=== PATIENT | female | born 1945 | race Caucasian/White ===

== ENCOUNTER → 2021-06-28 15:25 | Outpatient (CLI) | payer MEDICARE, SELFPAY ==
[2021-06-28 16:29] LABS: Adenovirus,PCR Not Detected (NotDetected); Bordetella Pertussis Not Detected (NotDetected); Chlamydophila Pneumoniae, PCR Not Detected (NotDetected); Coronavirus 19, PCR Not Detected (NotDetected); Coronavirus 229E Not Detected (NotDetected); Coronavirus NL63 Not Detected (NotDetected); Coronavirus OC43 Not Detected (NotDetected); Coronovirus HKU1,PCR Not Detected (NotDetected); Influenza A, PCR Not Detected (NotDetected); Influenza AH1, 2009 Not Detected (NotDetected); Influenza AH1, PCR Not Detected (NotDetected); Influenza AH3,PCR Not Detected (NotDetected); Influenza B, PCR Not Detected (NotDetected); Mycoplasma Pneumoniae, PCR Not Detected (NotDetected); Parainfluenza 1, PCR Not Detected (NotDetected); Parainfluenza 2, PCR Not Detected (NotDetected); Parainfluenza 3, PCR Not Detected (NotDetected); Parainfluenza 4, PCR Not Detected (NotDetected); Respiratory Syncytial Virus Not Detected (NotDetected); Rhinovirus/Enterovirus Not Detected (NotDetected)
[2021-06-28 16:37] LABS: Basophils # 0.1 K/mm3 (0-0.2); Basophils % 0.9 % (0.1-2.0); Eosinophils # 0.3 K/mm3 (0.0-0.4); Eosinophils % 4.2 % (0.1-12.0); Hematocrit 44.6 % (37.0-47.0); Hemoglobin 14.8 g/dL (12.2-16.2); Lymphocytes # 1.9 K/mm3 (0.7-4.5); Lymphocytes % 28.3 % (10-50); Mean Corpuscular HGB Conc 33.2 g/dL (31.8-35.4); Mean Corpuscular Hemoglobin 34.2 pg (27.0-31.2); Mean Corpuscular Volume 103.1 fl (81-99); Mean Platelet Volume 8.3 fl (7.4-10.4); Monocytes # 0.4 K/mm3 (0.1-1.0); Monocytes % 5.6 % (1.7-9.3); Neutrophils # 4.2 K/mm3 (1.8-7.8); Neutrophils % 61.2 % (37.0-80.0); Platelet Count 200 K/mm3 (142-424); Red Blood Count 4.33 M/mm3 (4.20-5.40); Red Cell Distribution Width 13.1 % (11.5-17.5); White Blood Count 6.8 K/mm3 (4.8-10.8)
[2021-06-28 20:43] LABS: Human Metapneumovirus Detected (NotDetected)
== END ==
PROVIDERS: PCP Family Medicine; Visit Provider Family Medicine
DX: Z20.822 Contact with and (suspected) exposure to COVID-19 (principal); B97.81 Human metapneumovirus as the cause of diseases classified elsewhere
CPT/HCPCS: 36415; 85025; 87581; 87632; 87798; C9803; U0003; U0005

== ENCOUNTER → 2022-03-30 10:10 | Outpatient (CLI) | payer MEDICARE, SELFPAY ==
[2022-03-30 10:51] LABS: Basophils # 0.2 K/mm3 (0-0.2); Basophils % 2.5 % (0.1-2.0); Eosinophils # 0.3 K/mm3 (0.0-0.4); Eosinophils % 4.2 % (0.1-12.0); Hematocrit 45.9 % (37.0-47.0); Hemoglobin 14.6 g/dL (12.2-16.2); Lymphocytes # 1.9 K/mm3 (0.7-4.5); Lymphocytes % 24.8 % (10-50); Mean Corpuscular HGB Conc 31.7 g/dL (31.8-35.4); Mean Corpuscular Hemoglobin 33.6 pg (27.0-31.2); Mean Corpuscular Volume 106.1 fl (81-99); Mean Platelet Volume 8.6 fl (7.4-10.4); Monocytes # 0.5 K/mm3 (0.1-1.0); Neutrophils # 4.7 K/mm3 (1.8-7.8); Neutrophils % 62.5 % (37.0-80.0); Platelet Count 231 K/mm3 (142-424); Red Blood Count 4.33 M/mm3 (4.20-5.40); Red Cell Distribution Width 13.5 % (11.5-17.5); White Blood Count 7.6 K/mm3 (4.8-10.8)
[2022-03-30 10:53] LABS: Hemoglobin A1C 6.1 % (4.0-6.0)
[2022-03-30 11:42] LABS: Chloride 101 mmol/L (98-107); Potassium 4.7 mmoL/L (3.5-5.1); Sodium 140 mmol/L (136-145)
[2022-03-30 11:44] LABS: Blood Urea Nitrogen 13 mg/dl (7-17); Estimated Glomerular Filt Rate 82 ml/min (>60); GFR (African American) 99 ML/MIN (>60)
[2022-03-30 11:45] LABS: Alanine Aminotransferase 20 U/L (12-78); Albumin Level 4.4 g/dl (3.5-5.0); Albumin/Globulin Ratio 1.5 (1.1-1.8); Alkaline Phosphatase 62 U/L (38-126); Anion Gap 15.7 mEq/L (5-15); Aspartate Amino Transferase 28 U/L (14-36); Bilirubin,Total 1.3 mg/dl (0.2-1.3); Calcium 9.1 mg/dl (8.4-10.2); Carbon Dioxide 28 mmol/L (22.0-30.0); Chol/HDL Ratio 6.2 (1-3.5); Cholesterol 199 mg/dl (140-200); Glucose 138 mg/dl (74-100); HDL Cholesterol 32 mg/dl (40-60); Total Protein,Serum 7.4 g/dl (6.3-8.2); Triglycerides 110 mg/dl (30-150); VLDL Cholesterol 22 mg/dL (0-40)
[2022-03-30 11:56] LABS: Direct LDL Cholesterol 134.07 mg/dL (100-129)
[2022-03-30 12:15] LABS: Thyroid Stimulating Hormone 2.82 uIU/mL (0.465-4.68)
[2022-03-30 17:29] LABS: Free T4 (Free Thyroxine) 0.57 ng/dl (0.78-2.19)
== END ==
PROVIDERS: PCP Family Medicine; Visit Provider Nurse Practitioner Family
DX: I48.0 Paroxysmal atrial fibrillation (principal); E78.00 Pure hypercholesterolemia, unspecified; E04.2 Nontoxic multinodular goiter; R73.09 Other abnormal glucose; Z79.899 Other long term (current) drug therapy
CPT/HCPCS: 36415; 80053; 80061; 83036; 84439; 84443; 85025

== ENCOUNTER 2022-04-20 17:02 | Emergency (ER) | payer MEDICARE, SELFPAY ==
[2022-04-20 17:03] VITALS: BP 161/47; PULSE 56; RESP 16; O2SAT 99; BMI 24.2
--- NOTE | 2022-04-20 17:24 | HMH.EDGENADL ---
Discharge Plan Disposition Patient Disposition: Home, Self-Care Condition: Good Prescriptions Prescriptions: New meclizine 25 mg tablet 25 mg PO DAILY Qty: 30 0RF diazepam [Valium] 2 mg tablet 2 mg PO BID PRN (Reason: vertgo) Qty: 10 0RF guaifenesin [Mucinex] 600 mg tablet extended release 12hr 600 mg PO BID Qty: 60 0RF oxymetazoline [Afrin (oxymetazoline)] 0.05 % spray,non-aerosol 2 spray intranasal BID 5 Days Qty: 30 0RF azithromycin 500 mg tablet 500 mg PO DAILY 5 Days Qty: 5 0RF Referrals Follow up/Referrals: Provider,Referral, MD [Referring] - See instructions Clinical Impressions Clinical Impression: Benign paroxysmal positional vertigo, Nasal congestion Instructions Patient Instructions: Vertigo, DI for Viral Upper Respiratory Infection -- Adult, Meclizine, Diazepam, Oxymetazoline Nasal [place], Azithromycin Discharge ED Provider: Remi Campbell Adult HPI General Chief complaint: Dizziness Stated complaint: VOMITTING AND NA Time Seen by Provider: 04/20/22 17:24 Related Data Previous Rx's Medication Instructions Recorded azithromycin 500 mg tablet 500 mg PO DAILY 5 days #5 tabs 04/20/22 diazepam 2 mg tablet (Valium) 2 mg PO BID PRN vertgo #10 tabs 04/20/22 guaifenesin 600 mg tablet, 600 mg PO BID #60 tabs 04/20/22 extended release 12 hr (Mucinex) meclizine 25 mg tablet 25 mg PO DAILY #30 tabs 04/20/22 oxymetazoline 0.05 % nasal spray 2 spray intranasal BID 5 days #30 04/20/22 (Afrin (oxymetazoline)) mL Allergies Allergy/AdvReac Type Severity Reaction Status Date / Time No Known Allergies Allergy Verified 04/20/22 17:35 [facility] Medical History (Updated 04/20/22 @ 19:47 by Remi Campbell MD) Atrial flutter Hypothyroid Surgical History (Updated 04/20/22 @ 17:34 by Minna Obregon RN) History of cardiac radiofrequency ablation (RFA) Social History Smoking Status: Never smoker alcohol intake: never current occupational status: other Travel in the last 8 weeks: None ROS Obtained: Yes Systems reviewed as appropriate & no additional complaints except as documented Constitutional Constitutional: Reports system reviewed and no additional complaints, except as documented Eyes Eyes: Reports system reviewed and no additional complaints, except as documented ENT Ears, Nose, Mouth, and Throat: Reports system reviewed and no additional complaints, except as documented Cardiovascular Cardiovascular: Reports system reviewed and no additional complaints, except as documented Respiratory Respiratory: Reports system reviewed and no additional complaints, except as documented Gastrointestinal Gastrointestingal: Reports as per HPI Genitourinary Female Genitourinary: Reports system reviewed and no additional complaints, except as documented Musculoskeletal Musculoskeletal: Reports system reviewed and no additional complaints, except as documented Integumentary/Breasts Skin/Breast: Reports system reviewed and no additional complaints, except as documented Neurologic Neurologic: Reports system reviewed and no additional complaints, except as documented Endocrine Endocrine: Reports system reviewed and no additional complaints, except as documented Hematologic/Lymphatic Henatologic/Lymphatic: Reports system reviewed and no additional complaints, except as documented Allergic/Immunologic Allergic/Immunologic: Reports system reviewed and no additional complaints, except as documented Physical Exam General General appearance: alert and in no apparent distress Head Head exam: atraumatic, normocephalic and normal inspection Eye Eye exam: Present normal appearance, PERRL and EOMI ENT ENT exam: Present normal exam, normal oropharynx, mucous membranes moist, TM's normal bilaterally and normal external ear exam Neck Neck exam: Present normal inspection, full ROM and trachea midline; Absent meningismus or lym
--- NOTE | 2022-04-20 17:38 | PC.NURSE ---
report given to terry ruano
[2022-04-20 18:01] VITALS: BP 121/59; PULSE 52; RESP 16; O2SAT 98
[2022-04-20 18:30] VITALS: BP 118/59; PULSE 52; RESP 17; O2SAT 97
--- NOTE | 2022-04-20 18:36 | ECG_ITS ---
APPROVED REPORT Exam: Resting ECG HR:49 bpm ECG Measurements Heart Rate 49 AXES OH 183 P 76 QRSd 97 QRS 90 QT 479 T 74 QTc 450 Conclusion SINUS BRADYCARDIA MODERATE ST DEPRESSION [0.05+ mV ST DEPRESSION] ABNORMAL ECG UNCONFIRMED REPORT Electronically signed by : Venkata Garcia MD 04/21/2022 20:06:40
[2022-04-20 18:50] LABS: Coronavirus 19, PCR Not Detected (NotDetected); Influenza A, PCR Not Detected (NotDetected); Influenza B, PCR Not Detected (NotDetected)
[2022-04-20 18:52] LABS: Alanine Aminotransferase 23 U/L (12-78); Albumin Level 4.3 g/dl (3.5-5.0); Albumin/Globulin Ratio 1.3 (1.1-1.8); Alkaline Phosphatase 78 U/L (38-126); Anion Gap 14.3 mEq/L (5-15); Aspartate Amino Transferase 31 U/L (14-36); Blood Urea Nitrogen 13 mg/dl (7-17); Carbon Dioxide 27 mmol/L (22.0-30.0); Chloride 98 mmol/L (98-107); Creatinine Clearance Estimated 52 mL/min (50-200); Estimated Glomerular Filt Rate 97 ml/min (>60); GFR (African American) 118 ML/MIN (>60); Globulin 3.3 g/dL (1.3-3.2); Glucose 128 mg/dl (74-100); Potassium 4.3 mmoL/L (3.5-5.1); Sodium 135 mmol/L (136-145); Total Protein,Serum 7.6 g/dl (6.3-8.2)
[2022-04-20 18:53] LABS: Basophils # 0.1 K/mm3 (0-0.2); Basophils % 0.8 % (0.1-2.0); Eosinophils # 0.1 K/mm3 (0.0-0.4); Eosinophils % 1.3 % (0.1-12.0); Hematocrit 45.6 % (37.0-47.0); Hemoglobin 15.3 g/dL (12.2-16.2); Lymphocytes # 1.5 K/mm3 (0.7-4.5); Mean Corpuscular HGB Conc 33.7 g/dL (31.8-35.4); Mean Corpuscular Hemoglobin 34.1 pg (27.0-31.2); Mean Corpuscular Volume 101.2 fl (81-99); Mean Platelet Volume 8.8 fl (7.4-10.4); Monocytes # 0.2 K/mm3 (0.1-1.0); Monocytes % 2.8 % (1.7-9.3); Neutrophils # 6.7 K/mm3 (1.8-7.8); Neutrophils % 77.9 % (37.0-80.0); Platelet Count 267 K/mm3 (142-424); Red Cell Distribution Width 13.2 % (11.5-17.5); White Blood Count 8.6 K/mm3 (4.8-10.8)
[2022-04-20 19:02] LABS: Troponin I 0.03 ng/ml (0.00-0.034)
--- NOTE | 2022-04-20 19:38 | PC.NURSE ---
Pt ambulated with minimal assistance. Pt advised that she felt much better from earlier.
[2022-04-20 20:24] VITALS: BP 116/60; PULSE 78; RESP 18; TEMP 36.8; O2SAT 98
== END 2022-04-20 21:00 | disposition home or self-care (01) ==
PROVIDERS: Emergency Provider Emergency Medicine; PCP Family Medicine
DX: R42 Dizziness and giddiness (principal); R11.2 Nausea with vomiting, unspecified; R00.1 Bradycardia, unspecified; I48.92 Unspecified atrial flutter; E03.9 Hypothyroidism, unspecified; Z20.822 Contact with and (suspected) exposure to COVID-19; Z79.899 Other long term (current) drug therapy; Z88.8 Allergy status to other drugs, medicaments and biological substances
CPT/HCPCS: 80053; 84484; 85025; 93005; 96361; 96374; 96375; 99285; C9803; J2405; U0003; U0005

== ENCOUNTER → 2022-05-19 12:34 | Outpatient (CLI) | payer MEDICARE, SELFPAY ==
--- NOTE | 2022-05-19 12:46 | ECG_ITS ---
APPROVED REPORT Exam: Resting ECG HR:95 bpm ECG Measurements Heart Rate 95 AXES MD 211 P 96 QRSd 94 QRS 83 QT 372 T 59 QTc 425 Conclusion SINUS RHYTHM WITH FIRST DEGREE AV BLOCK MODERATE ST DEPRESSION [0.05+ mV ST DEPRESSION] ABNORMAL ECG UNCONFIRMED REPORT Electronically signed by : Venkata Garcia MD 05/19/2022 19:47:50
== END ==
PROVIDERS: PCP Family Medicine; Visit Provider Internal Medicine Cardiovascular Disease
DX: I48.91 Unspecified atrial fibrillation (principal); I48.92 Unspecified atrial flutter; I48.19 Other persistent atrial fibrillation
CPT/HCPCS: 93005

== ENCOUNTER → 2022-09-22 13:20 | Outpatient (CLI) | payer MEDICARE, SELFPAY ==
--- NOTE | 2022-09-22 13:40 | ECG_ITS ---
APPROVED REPORT Exam: Resting ECG HR:91 bpm ECG Measurements Heart Rate 91 AXES QRSd 97 QRS 52 QT 350 T 29 QTc 399 Conclusion SUPRAVENTRICULAR RHYTHM NONSPECIFIC ST & T-WAVE ABNORMALITY ABNORMAL RHYTHM ECG UNCONFIRMED REPORT Electronically signed by : Venkata Garcia MD 09/22/2022 19:57:13
== END ==
PROVIDERS: PCP Family Medicine; Visit Provider Internal Medicine Cardiovascular Disease
DX: I48.91 Unspecified atrial fibrillation (principal); I48.92 Unspecified atrial flutter
CPT/HCPCS: 93005

== ENCOUNTER 2023-01-10 22:32 | Emergency (ER) | payer MEDICARE, SELFPAY ==
--- NOTE | 2023-01-10 22:37 | ECG_ITS ---
APPROVED REPORT Exam: Resting ECG HR:154 bpm ECG Measurements Heart Rate 154 AXES QRSd 83 QRS 83 QT 200 T 0 QTc 287 Conclusion ATRIAL FLUTTER/TACHYCARDIA WITH RAPID VENTRICULAR RESPONSE NONSPECIFIC ST & T-WAVE ABNORMALITY CRITICAL TEST RESULT UNCONFIRMED REPORT Electronically signed by : Venkata Garcai MD 01/12/2023 21:19:00
--- NOTE | 2023-01-10 22:46 | PC.NURSE ---
Dr. Aden at
[2023-01-10 22:47] VITALS: BP 169/109; PULSE 156; RESP 22; TEMP 36.9; O2SAT 98; BMI 25.0
--- NOTE | 2023-01-10 22:52 | XR_ITS ---
PROCEDURE INFORMATION: Exam: XR Chest Exam date and time: 01/10/2023 10:50 PM Age: 77 years old Clinical indication: Tachypnea; Additional info: Palpitations TECHNIQUE: Imaging protocol: Radiologic exam of the chest. Views: 2 views. COMPARISON: No relevant prior studies available. FINDINGS: Lungs: Small left basilar calcified granuloma. No consolidation. Pleural spaces: Unremarkable. No pleural effusion. No pneumothorax. Heart/Mediastinum: Unremarkable. No cardiomegaly. Bones/joints: Unremarkable. IMPRESSION: No acute pulmonary findings.
[2023-01-10 22:54] VITALS: PULSE 149
--- NOTE | 2023-01-10 22:56 | HMH.EDARPALP ---
Discharge Plan Disposition Patient Disposition: Home, Self-Care Chief Complaint: Arrhythmia/Palpitations Prescriptions Prescriptions: No Action sotalol 80 mg tablet 120 mg PO AM digoxin 250 mcg (0.25 mg) tablet 125 mcg PO DAILY [place] Thyroid 60 mg tablet 60 mg PO DAILY Xarelto 20 mg tablet 20 mg PO DAILY sotalol 80 mg tablet 80 mg PO PM Referrals Follow up/Referrals: Barry Jimenez [Primary Care Provider] - See instructions Clinical Impressions Clinical Impression: Atrial flutter Discharge ED Provider: Markie (ED)Earle Arrhythmia/Palpitations HPI General Chief Complaint: Arrhythmia/Palpitations Stated Complaint: elavated heart rate, elavated b/p Time Seen by Provider: 01/10/23 22:45 Mode of Arrival: Family Vehicle Source of Information: Patient and Medical Record Limitations: No Limitations History of Present Illness HPI narrative: has hx of atrial arrthymias and has been compliant with meds -pt w/o chest pain MD complaint: rapid heart beat Onset (ago): hour(s) Duration: intermittent Severity: moderate Context: occurred during rest Arrhythmia history: atrial fibrillation, on anti-coagulants, history of ablation and history of electrical cardioversion Associated symptoms: denies other symptoms Treatments prior to arrival: vagal maneuvers Related Data Home Medications Medication Instructions Recorded Confirmed digoxin 250 mcg (0.25 mg) tablet 125 mcg PO DAILY AFIB 01/10/23 01/10/23 rivaroxaban 20 mg tablet (Xarelto) 20 mg PO DAILY AFIB 01/10/23 01/10/23 sotalol 80 mg tablet 80 mg PO PM AFIB 01/10/23 01/10/23 sotalol 80 mg tablet 120 mg PO AM HR 01/10/23 01/10/23 thyroid (pork) 60 mg tablet 60 mg PO DAILY THYROID 01/10/23 01/10/23 ([place] Thyroid) Allergies Allergy/AdvReac Type Severity Reaction Status Date / Time diltiazem Allergy Unknown Verified 04/20/22 20:04 flecainide Allergy Unknown Verified 04/20/22 20:04 hydroxyzine Allergy Unknown Verified 04/20/22 20:04 dexamethasone AdvReac Intermediate Verified 04/20/22 20:04 [facility] Disclaimer: The information contained in this section may have been updated after the patient was seen, as this information can be updated by other users. Medical History (Updated 01/11/23 @ 01:47 by Earle Aden MD (ED)) Atrial flutter Hypothyroid Surgical History (Updated 04/20/22 @ 17:34 by Minna Obregon RN) History of cardiac radiofrequency ablation (RFA) Social History (Updated 04/20/22 @ 19:49 by Remi Campbell MD) Smoking Status: Never smoker alcohol intake: never current occupational status: other Travel in the last 8 weeks: None ROS Obtained: Yes All systems reviewed & no additional complaints except as documented Physical Exam General General appearance: alert Head Head exam: normocephalic Eye Eye exam: Present PERRL and EOMI ENT ENT exam: Present mucous membranes moist Neck Neck exam: Present trachea midline Respiratory Respiratory exam: Present normal lung sounds bilaterally; Absent respiratory distress Cardiovascular Cardiovascular exam: Present tachycardia Abdominal Exam Abdominal exam: Present soft Extremities Exam Extremities exam: Absent joint swelling or calf tenderness Neurological Exam Neurological exam: Present alert, oriented X3 and CN II-XII intact; Absent motor sensory deficit Psychiatric Psychiatric exam: Present normal affect Skin Skin exam: Absent rash Medical Decision Making Medical Records Medical records reviewed: Yes I reviewed the patient's medical records. [place] Inquiry Pt receiving controlled substance: No Vital Signs: 01/10/23 22:47 01/10/23 22:54 01/10/23 23:19 Temperature 98.4 F Temperature Source Oral Pulse Rate 149 H 142 H Pulse Rate [Right Brachial] 156 H Respiratory Rate 22 13 Blood Pressure 126/107 H Blood Pressure [Right Arm] 169/109 H Blood Pressure Mean 110 Blood Pressure Mean [Right Arm] 129
--- NOTE | 2023-01-10 23:00 | PC.NURSE ---
Pt gone to RAD via wheelchair
--- NOTE | 2023-01-10 23:02 | PC.NURSE ---
Pt returned from RAD
[2023-01-10 23:04] LABS: Basophils # 0.1 K/mm3 (0-0.2); Basophils % 0.9 % (0.1-2.0); Eosinophils # 0.4 K/mm3 (0.0-0.4); Eosinophils % 4.9 % (0.1-12.0); Hemoglobin 15.8 g/dL (12.2-16.2); Lymphocytes # 2.6 K/mm3 (0.7-4.5); Lymphocytes % 33.6 % (10-50); Mean Corpuscular HGB Conc 32.2 g/dL (31.8-35.4); Mean Corpuscular Hemoglobin 32.9 pg (27.0-31.2); Mean Corpuscular Volume 102.2 fl (81-99); Mean Platelet Volume 8.7 fl (7.4-10.4); Monocytes # 0.5 K/mm3 (0.1-1.0); Monocytes % 5.9 % (1.7-9.3); Neutrophils # 4.2 K/mm3 (1.8-7.8); Neutrophils % 54.7 % (37.0-80.0); Platelet Count 233 K/mm3 (142-424); Red Blood Count 4.79 M/mm3 (4.20-5.40); Red Cell Distribution Width 13.5 % (11.5-17.5); White Blood Count 7.6 K/mm3 (4.8-10.8)
[2023-01-10 23:07] LABS: Alanine Aminotransferase 40 U/L (12-78); Albumin Level 4.9 g/dl (3.5-5.0); Alkaline Phosphatase 60 U/L (38-126); Anion Gap 15.4 mEq/L (5-15); Aspartate Amino Transferase 40 U/L (14-36); Bilirubin,Indirect 0.7 mg/dL (0.0-0.9); Bilirubin,Total 0.7 mg/dl (0.2-1.3); Bilirubin,Unconjugated 0.8 mg/dL (0.0-1.1); Blood Urea Nitrogen 13 mg/dl (7-17); Calcium 9.5 mg/dl (8.4-10.2); Carbon Dioxide 28 mmol/L (22.0-30.0); Chloride 102 mmol/L (98-107); Creatinine Clearance Estimated 53 mL/min (50-200); Estimated Glomerular Filt Rate 81 ml/min (>60); GFR (African American) 98 ML/MIN (>60); Glucose 135 mg/dl (74-100); Potassium 4.4 mmoL/L (3.5-5.1); Sodium 141 mmol/L (136-145); Total Protein,Serum 8.5 g/dl (6.3-8.2)
[2023-01-10 23:19] VITALS: BP 126/107; PULSE 142; RESP 13; O2SAT 97
[2023-01-10 23:20] LABS: NT Pro Brain Natriuretic Pep. 203 pg/mL (0-450)
[2023-01-10 23:24] LABS: Troponin I < 0.01 ng/ml (0.00-0.034)
[2023-01-10 23:25] LABS: T4 (Thyroxine) 6.4 ug/dl (5.53-11.0)
[2023-01-10 23:30] VITALS: BP 128/77; PULSE 144; RESP 14; O2SAT 96
[2023-01-10 23:38] LABS: Thyroid Stimulating Hormone 1.38 uIU/mL (0.465-4.68)
--- NOTE | 2023-01-10 23:49 | ECG_ITS ---
APPROVED REPORT Exam: Resting ECG HR:147 bpm ECG Measurements Heart Rate 147 AXES PA 98 P -71 QRSd 90 QRS 74 QT 283 T 50 QTc 367 Conclusion JUNCTIONAL TACHYCARDIA, POSSIBLE ATRIAL FLUTTER MODERATE ST DEPRESSION [0.05+ mV ST DEPRESSION] ABNORMAL ECG UNCONFIRMED REPORT Electronically signed by : Venkata Garcia MD 01/12/2023 21:18:44
[2023-01-11] VITALS: BP 130/90; PULSE 147; RESP 17; O2SAT 95
[2023-01-11 00:30] VITALS: BP 149/98; PULSE 150; RESP 14; O2SAT 95
[2023-01-11 01:00] VITALS: BP 137/96; PULSE 146; RESP 18; O2SAT 95
[2023-01-11 01:30] VITALS: BP 141/96; PULSE 148; RESP 20; O2SAT 96
[2023-01-11 02:00] VITALS: BP 119/78; PULSE 147; RESP 19; TEMP 36.9; O2SAT 97
== END 2023-01-11 02:05 | disposition home or self-care (01) ==
PROVIDERS: Emergency Provider Emergency Medicine; PCP Family Medicine
DX: I48.92 Unspecified atrial flutter (principal); E03.9 Hypothyroidism, unspecified
CPT/HCPCS: 71046; 80048; 80076; 80162; 83880; 84436; 84443; 84484; 85025; 93005; 96374; 96376; 99285